=== PATIENT | female | born 1970 | race Caucasian/White ===

== ENCOUNTER 2017-07-05 10:07 | Outpatient (CLI) | payer OTHER ==
--- NOTE | 2017-07-05 13:59 | Cat Scan Report ---
FINAL REPORT EXAM: CT ABDOMEN PELVIS WO/W CON HISTORY: MASS IN LOWER QUADRANT TECHNIQUE: CT abdomen and pelvis performed. Images extend from diaphragm to pubic symphysis. Images were obtained before and after intravenous contrast administration. Coronal and sagittal reformatted images were obtained. PRIORS: None. FINDINGS: The kidneys are enlarged with innumerable cysts replacing majority of renal parenchyma. Appearance is compatible with adult polycystic kidney disease. Additionally there are innumerable hepatic cysts. There is no splenomegaly. Pancreas and adrenal glands demonstrate no significant abnormality. There is no abdominal aortic aneurysm. There is no evidence of intestinal obstruction. The appendix is normal. There are no abnormal fluid collections seen. There is no free intraperitoneal air. The bladder is unremarkable. There is diverticulosis involving the sigmoid colon, but there is no evidence of acute diverticulitis. IMPRESSION: Innumerable renal and hepatic cysts with appearance compatible with adult polycystic kidney disease. The sigmoid diverticulosis. No acute diverticulitis seen.
== END 2017-07-05 10:08 | disposition home or self-care (01) ==
LOC: CT 10:07
PROVIDERS: ATTEND Family Medicine
DX: N28.1 Cyst of kidney, acquired (principal); K57.30 Diverticulosis of large intestine without perforation or abscess without bleeding; K76.89 Other specified diseases of liver
CPT/HCPCS: 36415; 74178; 82565; 84520; Q9967

== ENCOUNTER 2018-03-21 10:24 | Outpatient (CLI) | payer OTHER ==
--- NOTE | 2018-03-21 12:20 | Magnetic Resonance Report ---
MR ABDOMEN WITHOUT CONTRAST History: Kidney disease. Technique: Multisequence, multiplanar MRI without IV gadolinium. Findings: Correlation is made with the CT abdomen pelvis with and without contrast performed on 07/05/17. The kidneys are markedly enlarged measuring up to 20 cm in length and contain innumerable small and large renal cysts. One of the largest cyst measures 8.6 cm at the superior pole of the right kidney. All of the cysts appear simple in nature. No obvious hemorrhagic transformation, soft tissue component or suspicious septation. There is no obvious renal mass although no IV contrast was administered and the renal cortex is poorly evaluated secondary to the severe cystic disease. No hydronephrosis or perinephric fluid is identified. The liver is normal size and contour although there are also numerous liver cysts. The largest cyst measures 3.6 cm near the liver hilum. No evidence for liver mass The biliary system, pancreas, spleen, adrenal glands, aorta and visualized bowel loops are within normal limits. No evidence for ascites, adenopathy or inflammation. There is severe scoliosis of the thoracolumbar spine. No fracture or suspicious bony lesion. 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 No evidence for obvious renal mass or obstruction. No significant change can be appreciated since the CT performed 07/05/17.
== END 2018-03-21 10:25 | disposition home or self-care (01) ==
LOC: MRI 10:24
PROVIDERS: ATTEND Family Medicine
DX: K76.9 Liver disease, unspecified (principal); Q61.3 Polycystic kidney, unspecified
CPT/HCPCS: 74181